=== PATIENT | male | born 2000 | race Caucasian/White ===

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

== ENCOUNTER 2024-10-16 03:08 | Emergency (ER) | payer OTHER ==
[~2024-10-16] VITALS: Ht 180.3 cm; Wt 127.0 kg
[2024-10-16] MEDS ORDERED: LIDOCAINE HCL 50 ML BOTT TOP STA (03:58)
== END 2024-10-16 04:05 | disposition home or self-care (01) ==
LOC: ER 03:08
DX: J06.9 Acute upper respiratory infection, unspecified (principal); Z88.6 Allergy status to analgesic agent; Z88.0 Allergy status to penicillin